=== PATIENT | female | born 1980 | race Caucasian/White ===

== ENCOUNTER → 2018-08-26 | Outpatient (CLI) | payer BC | LOC: FIMAGING 10:15 | PROVIDERS: ATTEND Obstetrics & Gynecology | DX: Z36.9 Encounter for antenatal screening, unspecified (principal); O09.512 Supervision of elderly primigravida, second trimester; Z3A.19 19 weeks gestation of pregnancy ==

== ENCOUNTER → 2018-11-04 | Outpatient (CLI) | payer BC | LOC: FIMAGING 14:19 | PROVIDERS: ATTEND Obstetrics & Gynecology | DX: O09.513 Supervision of elderly primigravida, third trimester (principal); D25.9 Leiomyoma of uterus, unspecified; Z3A.30 30 weeks gestation of pregnancy ==